=== PATIENT | male | born 1975 | race Hispanic/Latino ===

== ENCOUNTER 2016-11-19 09:09 | Emergency (ER) | payer MEDICAID, OTHER ==
[~2016-11-19] VITALS: Ht 160 cm; Wt 72.7 kg
[2016-11-19 09:11] VITALS: BP 151/99; PULSE 76; RESP 16; O2SAT 99
--- NOTE | 2016-11-19 09:14 | ED.REPORT ---
HPI-Chest Pain 40 and Over Date of Service Nov 19, 2016 ED Provider: Alfred Garrett MD The patient is an otherwise healthy 41 year old male who presents to the emergency department complaining of left-sided chest pain that began suddenly this morning at 0830. The pain radiates through to his back. He describes the pain as "stabbing." His pain is worse with movement. He tried to lay down with no improvement. He denies any known injury or trauma. When he got out of the car to come into the ED he felt lightheaded. He has not had similar symptoms in the past. He is active and exercises often. He denies shortness of breath, abdominal pain, nausea, vomiting or diarrhea. Nursing Notes Stated Complaint: CHEST PAIN/ARM PAIN Chief Complaint: Chest Pain Nursing Notes Reviewed: Yes Allergies: Coded Allergies: No Known Drug Allergies (Unverified Allergy, Unknown, 11/19/16) Scheduled PRN Ibuprofen (Ibuprofen) 600 Mg Tablet 600 MG PO QID PRN PRN For Pain General Time Seen by MD: 09:12 Chief Complaint Chest pain Hx Obtained From: Patient, Spouse Arrived By: Walk-in Sudden in Onset?: Yes Onset Occurred: 1 - 4 hours ago Symptom Duration: Since onset Location: : Chest left Quality: Painful Radiation: : Back Severity: Current: Moderate Severity: Maximum: Severe Pertinent Negative: Pt denies other symptoms Exacerbated by: Movement Recent Healthcare: No recent doctor visit, No recent hospitalization Similar Sx Previous: No Past Medical History Past Medical History None Family History Noncontributory Smoking History Unknown if Ever Smoker Social History Other Social History: Good social support, , Lives with children, Local resident Occupation [employer] Ambulatory Status Independent Review of Systems Respiratory: Denies: Shortness of breath Cardiovascular: Reports: Chest pain GI: Denies: Abdominal pain, Diarrhea, Nausea, Vomiting Musculoskeletal: Reports: Back pain Neurologic: Reports: Lightheaded Complete sys rev & neg: except as marked. Physical Exam Initial Vital Signs Vital Signs (First) Date Time Temp Pulse Resp B/P Pulse Ox O2 Delivery O2 Flow Rate FiO2 11/19/16 09:11 36.8 76 16 151/99 99 Room Air Initial VS: Reviewed Head / Eyes: Atraumatic, Normocephalic, PERRL ENT: Mucous membranes moist, Conjunctiva normal, No scleral icterus Neck: Supple, Non-tender, Full range of motion Lymphatic: No lymphadenopathy Extremities: Vascular intact, Neuro intact, No swelling, No tenderness Skin: Warm, Dry, No cyanosis Neurologic: Alert, Oriented, Nonfocal Psychiatric: Mood/affect normal, Behavior normal, Normal thought content General/Constitutional: Awake, Alert, No acute distress, Cooperative Respiratory / Chest: Atraumatic, Breath sounds NL, Breath sounds = bilat, No respiratory distress, No rales, No rhonchi, No wheezing, No stridor, No chest tenderness, No chest wall deformity Cardiovascular: Heart rate NL, Regular rhythm, Heart sounds NL, No gallop, No murmurs, No rubs, Peripheral circulation NL, Pulses = bilaterally, No gross BP differential Abdomen: Atraumatic, Soft, Non-tender, McBurney's non-tender, No guarding, No rebound, BS normoactive, No distention, No hernia, No palpable mass Upper Extremity / MS: Neurologic intact, Vascular intact Tenderness over his deltoid and pectoral region on the left. Pain when trying to cros his left arm across his chest. No deformity or crepitus. Interpretation & Diagnostics ECG Interpretation ECG Interpretation: Sinus rhythm with a rate of 71 Normal axis Normal intervals No ST segment changes No T wave abnormalities No prior EKG for comparison Time: 09:18 Interpreted by: ED physician X-Ray Chest Interpretation Interpretation / Wet Read by: Wet read ED physician NL X-Ray Chest Findings: No infiltrate, No acute disease Re-Eval/Medical Decision Med Decision/Clinical Course The patient is an otherwise healthy 41 year old male who presents to the emergency department complaining of left-sided chest pain that began suddenly this morning at 0830. The pain radiates through to his back. He describes the pain as "stabbing." His pain is worse with movement. University department the patient is afebrile stable vital signs and examination as above. Of note his chest pain is reproducible with palpation of the anterior chest wall and movement of his shoulder. EKG was obtained and interpreted by myself as documented above. CXR: Obtained, reviewed and interpreted by myself shows no evidence of acute infiltrates, effusions or pneumothorax. Cardiac and mediastinal silhouette normal. No bony or soft tissue abnormalities. Overall presentation consistent with musculoskeletal chest pain. Patient is low risk cardiac standpoint and EKG is unremarkable. I do not feel that further workup is indicated at this time. Patient is extremely low risk for pulmonary embolism and presentation not suggestive thereof. Overall and ice pack for his pain reverted to good symptom improvement. Patient will take ibuprofen and apply ice packs as an outpatient. He will follow up closely with his primary care physician. Follow-up and return precautions were reviewed in detail and he was discharged in good condition. Source of Hx: Old records Time of Eval: 10:36 Re-Evaluation/Progress Note: Discussed exam findings, diagnosis, and plan for discharge. All questions were addressed. Counseled Regarding: Diagnosis, Need for follow-up, When/why to return to ED Discharge & Departure Primary Impression: Chest wall pain Additional Impression: Musculoskeletal chest pain Disposition: Home Discharge Condition All VS Reviewed: Yes Condition: Stable Patient Instructions: Chest Pain (ED) Additional Instructions: Thank you for seeking care at the emergency room. It is difficult for us to make definitive diagnoses in the ED but we believe that you are experiencing musculoskeletal pain. Our primary goal today in the ED was to evaluate you for any life-threatening conditions. Your evaluation was reassuring. Take 600 mg Ibuprofen 3 times daily for 1 week. You can also apply ice packs if this helps. You should follow-up with your primary doctor in the next week. You should return to the ED immediately if you develop increased pain, shortness of breath, fevers, vomiting, lightheadedness, weakness or any other concerning signs or symptoms. Thank you for letting us partake in your care today. Referrals: [facility] Scribe Attestation Portions of this note were transcribed by Gardenia Daugherty. I, Dr. Garrett personally performed the history, physical exam and medical decision-making; I reviewed and confirmed the accuracy of the information in the transcribed note. Signed by: Pankaj Pickard, 11/19/2016 at 1045. Alfred Garrett MD Nov 19, 2016 09:14 Gardenia Daugherty Nov 19, 2016 09:24
[2016-11-19] MEDS ORDERED: IBUP-1827 PO (10:41)
[2016-11-19 11:12] VITALS: BP 122/81; PULSE 64; RESP 15; O2SAT 98
--- NOTE | 2016-11-21 11:43 | DRSVH ---
CORRECTED PATIENT NAME AND MR# ON 11/21/16 PROCEDURE: X-RAY CHEST ONE VIEW, PORTABLE ([id number]) INDICATIONS: chest pain TECHNIQUE: One view of the chest was acquired. COMPARISON: None. FINDINGS: Surgical changes and devices: None. Lungs and pleura: No pleural effusions or pneumothorax. Lungs are clear except for a suspected gran uloma lateral right lung base measuring only approximately 3-4 mm in diameter.. Mediastinum: Mediastinal contours appear normal. Heart size is normal. Bones and chest wall: No suspicious bony lesions. Overlying soft tissues appear unremarkable. IMPRESSION: Reduced inspiratory volume, possible small granuloma lateral right lung base Dictated by: Guillaume Leiva M.D. on 11/19/2016 at 9:33 Approved by: Guillaume Leiva M.D. on 11/19/2016 at 9:33
== END 2016-11-19 11:14 | disposition home or self-care (01) ==
LOC: EDUNIT# 09:09 → SED 09:09
DX: R07.89 Other chest pain (principal); R42 Dizziness and giddiness